=== PATIENT | female | born 1970 | race Caucasian/White ===

== ENCOUNTER → 2017-10-20 12:59 | Outpatient (CLI) | payer OTHER, BC, SELFPAY ==
[2017-10-20 13:44] LABS: Absolute Lymphocyte Count 2.08 X10^3/ul (0.83-4.51); Absolute Neutrophil Count 4.4 X10^3/uL (2.0-7.7); Basophil# 0.03 X10^3/uL; Basophil% 0.4 % (0-1); Eosinophil# 0.07 X10^3/uL; Hematocrit 40.9 % (37-47); Hemoglobin 13.6 g/dl (12.0-15.0); Lymphocyte # 2.08 X10^3/ul (4.0); Lymphocyte % 29.4 % (19-41); Mean Corp Hgb Conc 33.3 g/gl (32-36); Mean Corpuscular Hgb 30.4 pg (27.0-32.0); Mean Corpuscular Volume 91.3 fL (81-99); Mean Platelet Vol. 9.6 fl (6.2-12.0); Monocyte# 0.43 X10^3/uL; Monocyte% 6.1 % (0-10); Neutrophil # 4.44 X10^3/uL (2.7-7.7); Neutrophil % 62.8 % (47-70); Platelet Count 258 K/mm3 (150-450); RBC Distribution Width CV 12.8 % (11.6-14.6); RBC Distribution Width SD 42.4 fl (35.1-43.9); Red Blood Count 4.48 M/mm3 (4.2-5.4); White Blood Count 7.1 K/mm3 (4.4-11.0)
[2017-10-20 13:45] LABS: POSITIVE COUNT NO; POSITIVE DIFFERENTIAL NO; POSITIVE MORPHOLOGY NO
[2017-10-25 14:06] LABS: Clam <0.10 kU/L (Class 0); Codfish <0.10 kU/L (Class 0); Corn <0.10 kU/L (Class 0); Egg, White <0.10 kU/L (Class 0); Milk (Cow) <0.10 kU/L (Class 0); Peanut <0.10 kU/L (Class 0); SCALLOP <0.10 kU/L (Class 0); Shrimp <0.10 kU/L (Class 0); Soybean <0.10 kU/L (Class 0); Walnut, (Food) <0.10 kU/L (Class 0); Wheat <0.10 kU/L (Class 0)
[2017-10-26 03:06] LABS: Endomysial Antibody IgA Negative (Negative); Immunoglobulin A 130 mg/dL (87-352); Immunoglobulin E 5 IU/mL (0-100); PROEL- A/G Ratio 1.3 (0.7-1.7); PROEL- Albumin 3.9 g/dL (2.9-4.4); PROEL- Alpha-1 Globulin 0.3 g/dL (0.0-0.4); PROEL- Alpha-2 Globulin 0.7 g/dL (0.4-1.0); PROEL- TOTAL PROTEIN 6.9 g/dL (6.0-8.5)
[2017-10-26 11:08] LABS: Deamidated Gliadin IgA 1 units (0-19); Deamidated Gliadin IgG 3 units (0-19); Hep C Antibodies <0.1 s/co ratio (0.0-0.9); t-Transglutaminase IgA <2 U/mL (0-3)
[2017-10-26 11:10] LABS: SESAME SEED <0.10 kU/L (Class 0)
== END ==
PROVIDERS: Visit Provider Otolaryngology Otolaryngology/Facial Plastic Surgery
DX: T78.40XA Allergy, unspecified, initial encounter (principal); T78.3XXA Angioneurotic edema, initial encounter
CPT/HCPCS: 36415; 82784; 82785; 83516; 83520; 84165; 85025; 86003; 86160; 86255; 86803

== ENCOUNTER 2018-05-25 20:02 | Observation (INO) | payer BC, SELFPAY ==
[2018-05-25 20:03] VITALS: BP 160/98; PULSE 64; RESP 18; TEMP 36.5; O2SAT 99; BMI 25.4
--- NOTE | 2018-05-25 20:11 | EKG12_ITS ---
Test Reason : CP Blood Pressure : / mmHG Vent. Rate : 061 BPM Atrial Rate : 061 BPM P-R Int : 132 ms QRS Dur : 088 ms QT Int : 432 ms P-R-T Axes : 021 058 044 degrees QTc Int : 434 ms Normal sinus rhythm Normal ECG Confirmed by JOSE VANESSA, VJ ([id number]), visual effects editor GUY CHRISTIE ([id number] on 05/28/2018 2:51:02 PM Referred By: MEMO/CELESTE Confirmed By:VJ GARCIA MD
--- NOTE | 2018-05-25 20:11 | RAD_ITS ---
STUDY: X-RAY CHEST REASON FOR EXAM: Female, 47 years old. Chest pain. TECHNIQUE: Single AP portable view of the chest. COMPARISON: None. FINDINGS: Telemetry wires overlie the chest. The lungs are clear and expanded. There is no demonstrated pleural abnormality. Normal size heart. Normal mediastinum and fabio. Normal visualized pulmonary arteries. Normal visualized aortic arch and descending thoracic aorta. The thoracic spine is obscured by the mediastinum. Normal visualized ribs, clavicles, and shoulders. There is no demonstrated abnormality of the visualized soft tissue structures of the upper abdomen. RAD/Chest 1 View (Portable) IMPRESSION: No acute cardiopulmonary disease. Electronically Signed: Junior Schrader DO at 20:42 EST Tel [phone], Service support ,
[2018-05-25 20:14] VITALS: BP 161/94; PULSE 66; RESP 17; O2SAT 99
[2018-05-25] MEDS: Aspirin 81 MG TAB.CHEW 324 MG PO (20:19)
--- NOTE | 2018-05-25 20:31 | ED.VISSUMM ---
- ER Visit Summary Date of Service: 05/25/18 Chief Complaint: Left posterior shoulder and left chest wall pain History of Present Illness: The patient is a 47 F past medical history. Patient has no cardiac disease. She is a negative stress test years ago. Denies any prior cardiac cath. States for approximately a week she has had intermittent left posterior shoulder and left chest wall pain. Not associated with exertion. She states she has been more tired lately. She denies any nausea, vomiting or diarrhea. Mild dyspnea. She is concerned because her significant family history on both her mom and dad side of the family. Both her parents have had CAD and cardiac stents. She denies any history of DVT or PE. No leg pain or swelling. No hemoptysis. No pleuritic nature to the pain. She denies any recent travel, surgery or mobilization. She has had bilateral mastectomies and has bilateral implants. She denies any fever or chills. No trauma. No redness or discoloration to her chest wall. Physical Examination: Well-appearing middle-age female. Vital signs are stable. Afebrile. Pulse ox 99% on room air no hypoxia. H EENT exam unremarkable. Neck nontender. Lungs clear to auscultation bilaterally. Heart regular rate and rhythm no murmur. Chest wall does have reproducible tenderness on the left upper chest wall. There is no ecchymosis or bruising. No redness. No warmth. No axillary lymphadenopathy. She also has associated muscular skeletal chest pain on the left posterior lateral shoulder. She has normal range of motion of the shoulder. There is no redness or warmth or swelling. She has normal range of motion of the shoulder. She has no swelling in the left arm. She is a strong radial pulse. And normal linotyper strength in the left hand. Abdomen is soft and nontender. Normal bowel sounds no peritoneal signs. She is moving all 4 extremities. Calves are nontender without edema or cords. Neurologically she is awake alert with no focal motor deficits. Test Results: Patient will undergo cardiac workup. Chest x-ray normal cardiac silhouette mediastinum 1 view read both by myself and the radiologist. EKG sinus rhythm rate is 61 unchanged from EKG from several years ago. CBC normal. Chemistries normal. Troponin normal. Emergency Department Course and Treatment: P.o. aspirin. Treatment Plan: Repeat exam unchanged. Patient does have some reproducible shoulder and chest pain. However she states it does not exact same pain she came in for. This may or may not be musculoskeletal pain that she is experiencing but she has a significant family history of cardiac disease given the atypical nature of her presentation feel she warrants admission and cardiac stress testing. I spoke to the hospitalist and he will be down to evaluate and admit the patient. Disposition: Observation admission Impression: Acute chest pain of uncertain etiology Acute reproducible chest wall and left shoulder pain This note was generated with [facility] dictation software. It may contain incorrect words, spelling, and punctuation that were not noted in review of the chart prior to signing ED Disposition - Plan for ED Patient: Chief Complaint: Chest Pain Referrals: [facility] Doctor,Out of [Primary Care Provider] -
[2018-05-25 20:48] LABS: Absolute Lymphocyte Count 3.13 X10^3/ul (0.83-4.51); Absolute Neutrophil Count 4.4 X10^3/uL (2.0-7.7); Basophil# 0.03 X10^3/uL; Basophil% 0.4 % (0-1); Eosinophils% 2.3 % (0-5); Hematocrit 42.1 % (37-47); Hemoglobin 13.9 g/dl (12.0-15.0); Lymphocyte # 3.13 X10^3/ul (4.0); Lymphocyte % 36.7 % (19-41); Mean Corpuscular Hgb 30.2 pg (27.0-32.0); Mean Corpuscular Volume 91.5 fL (81-99); Mean Platelet Vol. 10.1 fl (6.2-12.0); Monocyte# 0.79 X10^3/uL; Monocyte% 9.3 % (0-10); Neutrophil # 4.35 X10^3/uL (2.7-7.7); Neutrophil % 51.1 % (47-70); POSITIVE COUNT NO; POSITIVE DIFFERENTIAL NO; POSITIVE MORPHOLOGY NO; Platelet Count 270 K/mm3 (150-450); RBC Distribution Width CV 12.7 % (11.6-14.6); RBC Distribution Width SD 42.2 fl (35.1-43.9); White Blood Count 8.5 K/mm3 (4.4-11.0)
[2018-05-25 20:56] VITALS: BP 146/93; PULSE 59; RESP 16; O2SAT 98; O2SAT 99
[2018-05-25 21:04] LABS: Anion Gap 7 (5-15); BUN 13 mg/dL (7-18); BUN/Creat Ratio 15.8 RATIO (10-20); Calcium,Total 9.1 mg/dL (8.5-10.1); Chloride 106 mmol/L (98-107); Creatinine, Serum 0.82 mg/dL (0.55-1.02); EST Glomerular Filtration Rate 79 mL/min (>60); Est Glom Filt Rate - Afr Amer 96 mL/min (>60); Estimated Creatinine Clearance 73.24 ml/min; Glucose 102 mg/dL (74-106); Potassium 3.5 mmol/L (3.5-5.1); Sodium Level 141 mmol/L (136-145)
[2018-05-25 21:28] VITALS: BP 127/95; PULSE 55; RESP 13; O2SAT 100
--- NOTE | 2018-05-25 22:53 | PCM.HP.STD ---
Problem List (1) Chest pain Status: Acute History of Present Illness Date of Admission: 05/25/18 Chief Complaint: chest pain The patient is a 47 year old F with a significant history of bilateral mastectomy because of precancerous lesion in her breasts and a strong family history of breast cancer; who presented with episodic progressively worsening sharp left-sided chest pain x 1 week. She rates her pain as 8 out of 10. She denies any aggravating or ameliorating factors. Her pain radiates to her left's shoulder blade and to her left arm. She has numbness in the fingers of her left hand. She reports nausea, feeling hot and diaphoresis. She is unsure whether the symptoms represents pre-menopausal symptoms. In the past, patient had unremarkable stress test. Stress test was done because of chest pain. She reported that her mother had a heart attack when her mother was either 48 or 49 years. Also her mother had a stroke in her early 60s. Her father had 3 heart attacks and he has coronary stents. His father's first heart attack was when he was in his 50s. Past Medical History Allergies codeine Allergy (Verified 05/25/18 20:13) Anaphylaxis nj Allergy (Verified 05/25/18 20:14) Swelling mold Allergy (Verified 05/25/18 20:14) Shortness of breath morphine Allergy (Verified 05/25/18 20:13) Anaphylaxis Opioids - Morphine Analogues Allergy (Verified 05/25/18 20:13) Anaphylaxis Home Medications: Ambulatory Orders Medication Instructions Recorded Calcium DAILY 05/25/18 Ferrous Sulfate [Iron] 325 mg PO DAILY 05/25/18 Magnesium DAILY 05/25/18 Vitamin B-12 DAILY 05/25/18 Vitamin D DAILY 05/25/18 Vitamin E DAILY 05/25/18 Surgical History: cholecystectomy, hysterectomy, - - Oophorectomy Psychiatric History: No pertinent psych hx Lives: Alone Smoking Status: Never smoker Alcohol: None - *Family History Maternal History Items: Heart Disease, Stroke Paternal History Items: Heart Disease Review of Systems Constitutional: Denies: Chills, Fever, Weight Change HEENT: Denies: Head Aches, Sinus Congestion, Sinus Drainage Cardiovascular: Reports: Chest Pain. Denies: Palpitations Respiratory: Denies: Cough, Shortness of breath at rest, Sputum production Gastrointestinal: Reports: Nausea, Vomiting. Denies: Abdominal Pain Genitourinary: Denies: Dysuria Musculoskeletal: Denies: Joint Pain, Joint Tenderness Skin: Denies: Rash, Wounds Neurological: Reports: Numbness - Left fingers. Denies: Focal weakness Psychiatric: Denies: Anxiety, Depression, Homicidal Ideations, Suicidal Ideations Hematologic/ Lymphatic: Denies: Easy Bruising, Easy Bleeding VTE Information - Inpt Only VTE Present on Admission: No VTE Mechan Device Prophylaxis: None VTE Pharm Prophylaxis ordered?: Yes Patient Problems: Active and Suspected Problems Chest pain (Acute) - Physical Exam General: Alert, Oriented x3, Cooperative HEENT: Atraumatic, PERRLA, EOMI, Normocephalic Neck: Supple, No JVD, Negative Carotid Bruits Lungs: Clear to auscultation, Normal air movement Cardiovascular: Regular rate, No murmurs Abdomen: Bowel Sounds Present, Soft, Non Tender Extremities: No edema, Capillary Refill Less than 3 Seconds Skin: No rashes, No breakdown Musculoskeletal: No Tenderness to Palpation of Joints or Extremities Neurological: Cranial nerves II-XII grossly intact Psych/Mental Status: Normal Affect, Appropriate Vital Signs Temp Pulse Resp BP Pulse Ox 97.7 F L 55 L 13 127/95 H 100 05/25/18 20:03 05/25/18 21:28 05/25/18 21:28 05/25/18 21:28 05/25/18 21:28 Oxygen Flow Rate (L/min) 2 Oxygen Delivery Method Nasal Cannula Weight: 67.3 kg Body Mass Index (BMI) 25.4 Laboratory Tests Past 24 Hrs 05/25/18 05/25/18 20:35 20:35 WBC 8.5 RBC 4.60 Hgb 13.9 Hct 42.1 MCV 91.5 MCH 30.2 MCHC 33.0 RDW 12.7 RDW Differential 42.2 Plt Count 270 MPV 10.1 Immature Gran % (Auto) 0.200 Neut % (Auto) 51.1 Lymph % (Auto) 36.7 [place] % (Auto) 9.3 Eos % (Auto) 2.3 Baso % (Auto) 0.4 Absolute Neuts (auto) 4.4 Absolute Lymphs (auto) 3.13 Total Counted Not Reportable Sodium 141 Potassium 3.5 Chloride 106 Carbon Dioxide 28.0 Anion Gap 7 BUN 13 Creatinine 0.82 Estim Creat Clear Calc 73.24 Est GFR (MDRD) Af Amer 96 Est GFR (MDRD) Non-Af 79 BUN/Creatinine Ratio 15.8 Glucose 102 Calcium 9.1 Troponin I < 0.015 Assessment/Plan All Active Problems Chest pain (Acute) The patient is a 47 year old F with a strong family history of heart disease who presents with one-week history of progressively worsening left-sided chest pain that radiates to her left shoulder blades; and unto her left arm; and with numbness of the fingers of her left arm Chest Pain Admit to a monitored bed on PCU CXR independently reviewed confirms no acute cardiopulmonary process.. EKG independently reviewed confirms normal sinus rhythm Patient received aspirin 324 mg at emergency department. ASA 81 mg p.o. daily SL NTG 0.4 mg prn as needed for chest pain Patient reports multiple allergies; and even with anaphylactic reactions. Statins not initiated. Serial cardiac enzymes Stat EKG as needed for chest pain Treadmill Stress test in the AM if the cardiac enzymes are negative DVT prophylaxis Subcutaneous Lovenox ordered. Code Visit OBSV E&M: 38151 Initial observation care L3
[2018-05-25 23:08] VITALS: BP 113/92; PULSE 72; PULSE 83; RESP 16; RESP 19; O2SAT 98; O2SAT 99
[2018-05-26] VITALS (10 sets, daily range): BP systolic 119–144; BP diastolic 78–88; PULSE 62–78; RESP 17–18; TEMP 36.5–36.6; O2SAT 96–98; BMI 24.4
--- NOTE | 2018-05-26 00:04 | EKG12_ITS ---
Test Reason : Blood Pressure : / mmHG Vent. Rate : 067 BPM Atrial Rate : 067 BPM P-R Int : 138 ms QRS Dur : 086 ms QT Int : 404 ms P-R-T Axes : 038 055 056 degrees QTc Int : 426 ms Normal sinus rhythm Nonspecific T wave abnormality Abnormal ECG When compared with ECG of 25-MAY-2018 20:15, MANUAL COMPARISON REQUIRED, DATA IS UNCONFIRMED Confirmed by JOSE VANESSA, VJ ([id number]), brands editor GUY CHRISTIE ([id number]) on 05/31/2018 2:05:39 PM Referred By: Confirmed By:VJ GARCIA MD
[2018-05-26 04:02] LABS: Absolute Lymphocyte Count 2.85 X10^3/ul (0.83-4.51); Absolute Neutrophil Count 3.6 X10^3/uL (2.0-7.7); Basophil# 0.03 X10^3/uL; Basophil% 0.4 % (0-1); Eosinophil# 0.17 X10^3/uL; Eosinophils% 2.3 % (0-5); Hematocrit 40.2 % (37-47); Hemoglobin 13.2 g/dl (12.0-15.0); Lymphocyte # 2.85 X10^3/ul (4.0); Lymphocyte % 39.1 % (19-41); Mean Corp Hgb Conc 32.8 g/gl (32-36); Mean Corpuscular Hgb 29.9 pg (27.0-32.0); Mean Corpuscular Volume 91.2 fL (81-99); Mean Platelet Vol. 10.2 fl (6.2-12.0); Monocyte# 0.63 X10^3/uL; Monocyte% 8.6 % (0-10); Neutrophil # 3.58 X10^3/uL (2.7-7.7); Neutrophil % 49.2 % (47-70); Platelet Count 252 K/mm3 (150-450); RBC Distribution Width CV 12.5 % (11.6-14.6); RBC Distribution Width SD 41.2 fl (35.1-43.9); Red Blood Count 4.41 M/mm3 (4.2-5.4); White Blood Count 7.3 K/mm3 (4.4-11.0)
[2018-05-26 04:05] LABS: POSITIVE COUNT NO; POSITIVE DIFFERENTIAL NO; POSITIVE MORPHOLOGY NO
[2018-05-26 04:07] LABS: Partial Thromboplast Time 26.8 Seconds (24.1-36.2); Prothrombin Time (Protime)PT. 12.8 SECONDS (11.7-14.9)
[2018-05-26] MEDS: Aspirin E.C. 81 MG Tablet PO (06:11)
[2018-05-26 06:44] LABS: Anion Gap 8 (5-15); BUN 12 mg/dL (7-18); BUN/Creat Ratio 15.7 RATIO (10-20); Calcium,Total 8.9 mg/dL (8.5-10.1); Chloride 108 mmol/L (98-107); Cholesterol 187 mg/dL (200); Creatinine, Serum 0.76 mg/dL (0.55-1.02); EST Glomerular Filtration Rate 86 mL/min (>60); Est Glom Filt Rate - Afr Amer 104 mL/min (>60); Estimated Creatinine Clearance 79.02 ml/min; Glucose 107 mg/dL (74-106); High Density Lipoprotein 75 mg/dL; Potassium 3.6 mmol/L (3.5-5.1); Sodium Level 141 mmol/L (136-145); Triglycerides 68 mg/dL; Very Low Density Lipoprotein 14 mg/dL (5-40)
--- NOTE | 2018-05-26 10:23 | STRESSREP ---
Stress Test Report Date: 05/26/2018 Procedure: Exercise tolerance test/imaging study Indications: Chest pain Consent: Per the patient Procedure: The patient exercised on a Kit protocol for 10 minutes completing Stage III and 1 minute of Stage IV achieving a peak heart rate of 169 bpm (97 % predicted maximal heart rate) with a peak blood pressure 130/80 mmHg and a peak MET capacity of 11 METs. The baseline ECG demonstrated normal sinus rhythm. The peak exercise ECG demonstrated no obvious ECG changes. There were no cardiac dysrhythmias pretest, during exercise, or recovery. The functional capacity was considered good. There was no complaint of chest discomfort during exercise or recovery. The examination was discontinued secondary to shoulder discomfort. Impression: 1. Technically adequate (percent predicted maximal heart rate greater than 85%) exercise tolerance test 2. Peak exercise ECG with no obvious ECG changes 3. There were no cardiac dysrhythmias pretest, during exercise, or recovery 4. Nuclear images pending Myocardial perfusion imaging study: Technique: The patient was injected with 11.2 mCi of technetium 99m Cardiolite and subsequently rest SPECT Cardiolite nuclear imaging was obtained in the horizontal long, vertical long, and short axis views. The patient exercised on a Kit protocol for 10 minutes completing Stage III and 1 minute of Stage IV achieving a peak heart rate of 169 bpm (97 % predicted maximal heart rate) with a peak blood pressure 130/80 mmHg and a peak MET capacity of 11 METs. The patient was injected with 32.7 mCi of technetium 99m Cardiolite and subsequently stress SPECT Cardiolite nuclear imaging was obtained in the horizontal long, vertical long, and short axis views. A gated Cardiolite study at peak stress was obtained. Interpretation: Rest and stress SPECT Cardiolite nuclear imaging status post realignment and normalization demonstrates the appearance of relative uniform tracer uptake and myocardial perfusion appearing within normal limits. There is end systolic thickening and brightening. The gated Cardiolite study demonstrates myocardial thickening and inward wall motion. The reported LVEF is 68%. Impression: 1. Rest and stress SPECT Cardiolite nuclear imaging demonstrate relative uniform tracer uptake and myocardial perfusion appearing within normal limits. 2. The gated Cardiolite study reports an LVEF of 68 %. This note was generated with [employer] software. It may contain incorrect words, spelling, and punctuation that were not noted in checking the note before signing.
--- NOTE | 2018-05-26 10:29 | STRESSREP_ITS ---
Stress Test Report Date: 05/26/2018 Procedure: Exercise tolerance test/imaging study Indications: Chest pain Consent: Per the patient Procedure: The patient exercised on a Kit protocol for 10 minutes completing Stage III and 1 minute of Stage IV achieving a peak heart rate of 169 bpm (97 % predicted maximal heart rate) with a peak blood pressure 130/80 mmHg and a peak MET capacity of 11 METs. The baseline ECG demonstrated normal sinus rhythm. The peak exercise ECG demonstrated no obvious ECG changes. There were no cardiac dysrhythmias pretest, during exercise, or recovery. The functional capacity was considered good. There was no complaint of chest discomfort during exercise or recovery. The examination was discontinued secondary to shoulder discomfort. Impression: 1. Technically adequate (percent predicted maximal heart rate greater than 85%) exercise tolerance test 2. Peak exercise ECG with no obvious ECG changes 3. There were no cardiac dysrhythmias pretest, during exercise, or recovery 4. Nuclear images pending Myocardial perfusion imaging study: Technique: The patient was injected with 11.2 mCi of technetium 99m Cardiolite and subsequently rest SPECT Cardiolite nuclear imaging was obtained in the horizontal long, vertical long, and short axis views. The patient exercised on a Kit protocol for 10 minutes completing Stage III and 1 minute of Stage IV achieving a peak heart rate of 169 bpm (97 % predicted maximal heart rate) with a peak blood pressure 130/80 mmHg and a peak MET capacity of 11 METs. The marcella ent was injected with 32.7 mCi of technetium 99m Cardiolite and subsequently stress SPECT Cardiolite nuclear imaging was obtained in the horizontal long, vertical long, and short axis views. A gated Cardiolite study at peak stress was obtained. Interpretation: Rest and stress SPECT Cardiolite nuclear imaging status post realignment and normalization demonstrates the appearance of relative uniform tracer uptake and myocardial perfusion appearing within normal limits. There is end systolic thickening and brightening. The gated Cardiolite study demonstrates myocardial thickening and inward wall motion. The reported LVEF is 68%. Impression: 1. Rest and stress SPECT Cardiolite nuclear imaging demonstrate relative uniform tracer uptake and myocardial perfusion appearing within normal limits. 2. The gated Cardiolite study reports an LVEF of 68 %. This note was generated with [employer] software. It may contain incorrect words, spelling, and punctuation that were not noted in checking the note before signing.
--- NOTE | 2018-05-26 11:54 | PCM.DC ---
- Discharge Diagnoses Current Active Problems: Current Active and Chronic Problems Chest pain (Acute) You will use the following diet at home:: No restrictions Your food should be the consistency of: Regular Your liquids should be the consistency of: Regular/Thin Discharge Activity: Return to Normal Activity Weight Bearing Status: Full weight bearing Allergies/Adverse Reactions: Allergies codeine Allergy (Verified 05/25/18 20:13) Anaphylaxis nj Allergy (Verified 05/25/18 20:14) Swelling mold Allergy (Verified 05/25/18 20:14) Shortness of breath morphine Allergy (Verified 05/25/18 20:13) Anaphylaxis Opioids - Morphine Analogues Allergy (Verified 05/25/18 20:13) Anaphylaxis Medications to take at Discharge Calcium DAILY 05/25/18 Ferrous Sulfate [Iron] 325 mg PO DAILY 05/25/18 Magnesium DAILY 05/25/18 Vitamin B-12 DAILY 05/25/18 Vitamin D DAILY 05/25/18 Vitamin E DAILY 05/25/18 Primary Care Physician: [facility] Doctor,Out of [Primary Care Provider] - Please follow up with your Primary Care Physician in: next visit Test Results: Test results from this visit will be discussed in further detail at your follow-up appointment, if applicable.
--- NOTE | 2018-05-28 09:26 | PCM.DC.SUM ---
Discharge Date and Diagnosis Date of Admission: 05/25/18 Date of Discharge: 05/26/18 - Primary Discharge Diagnosis #1 musculoskeletal chest pain Hospital Course and Treatment Operations: None Procedures: Nuclear stress test Summary of Care Provided: The patient is a 47 year old F seen in the emergency room with a chief complaint of pain radiating from her left shoulder blade into her mid precordial chest area, patient also complained of some numbness of the left side of her face and some numbness down her left arm. Workup in the emergency room included an EKG which showed no acute ischemic changes, her chest x-ray was unremarkable, troponin was unremarkable. Patient was placed and observation status on PCU, cardiac enzymes were cycled and remained normal, patient underwent a nuclear stress test on 05/26/18 which was negative for reversible ischemia. Physical exam: On examination she appeared in good health and spirits. Vital signs as documented. Skin warm and dry and without overt rashes. Neck without JVD. Lungs clear. Heart exam notable for regular rhythm, normal sounds and absence of murmurs, rubs or gallops. Abdomen unremarkable and without evidence of organomegaly, masses, or abdominal aortic enlargement. Extremities nonedematous. Neuro: Cranial nerves II through XII are grossly intact, no focal motor deficits were noted. Psych: Patient is alert and oriented x3, she does not appear anxious or depressed. On 05/26/18, patient was seen and examined felt to be in stable condition for discharge home - Physical Exam Vital Signs Temp Pulse Resp BP Pulse Ox 98 F 77 17 121/78 H 97 05/26/18 08:53 05/26/18 11:04 05/26/18 08:53 05/26/18 08:53 05/26/18 11:00 Oxygen Flow Rate (L/min) 2 Oxygen Delivery Method Room Air Weight: 64.5 kg Body Mass Index (BMI) 24.4 Intake and Output for Last 24 Hours 05/26/18 05/27/18 05/28/18 23:59 23:59 23:59 Intake Total 480 / 480 Balance 480 / 480 Discharge Activity: Return to Normal Activity Weight Bearing Status: Full weight bearing Home Medications: Medications to take at Discharge Calcium DAILY 05/25/18 Ferrous Sulfate [Iron] 325 mg PO DAILY 05/25/18 Magnesium DAILY 05/25/18 Vitamin B-12 DAILY 05/25/18 Vitamin D DAILY 05/25/18 Vitamin E DAILY 05/25/18 Primary Care Physician: [facility] Doctor,Out of [Primary Care Provider] - Please follow up with your Primary Care Physician in: next visit Disposition: Home Minutes spent on discharge:: 30 Patient Condition:: Stable Medical Necessity - Tobacco Use Smoking Status: Never smoker Meaningful Use Info Meaningful Use Diagnoses (Choose all that apply): None applicable Code Visit OBSV E&M: 82130 Observation care discharge
== END 2018-05-26 11:55 | disposition home or self-care (01) ==
LOC: ED 20:39 → PCU 23:06
PROVIDERS: Admitting Provider Hospitalist; Emergency Provider Emergency Medicine; Visit Provider Internal Medicine
DX: R07.89 Other chest pain (principal); Z82.49 Family history of ischemic heart disease and other diseases of the circulatory system; R06.09 Other forms of dyspnea
CPT/HCPCS: 36415; 71045; 78452; 80048; 80061; 84484; 85025; 85610; 85730; 93005; 93017; 99218; 99285; A9500; A4216; G0378

== ENCOUNTER 2020-02-23 19:21 | Emergency (ER) | payer BC, SELFPAY ==
[2020-02-23 19:23] VITALS: BP 154/97; PULSE 89; RESP 16; TEMP 36.6; O2SAT 98; BMI 27.4
--- NOTE | 2020-02-23 19:53 | EKG12_ITS ---
Test Reason : CP Blood Pressure : / mmHG Vent. Rate : 069 BPM Atrial Rate : 069 BPM P-R Int : 136 ms QRS Dur : 084 ms QT Int : 378 ms P-R-T Axes : 039 056 035 degrees QTc Int : 405 ms Normal sinus rhythm Nonspecific ST and T wave abnormality Abnormal ECG Confirmed by HILARIO REYNA ([id number]), assignment desk editor LUCAS YOUNG ([id number]) on 02/27/2020 2:07:00 PM Referred By: KATIE Confirmed By:HILARIO REYNA
--- NOTE | 2020-02-23 19:53 | CT_ITS ---
STUDY: CTA CHEST REASON FOR EXAM: Female, 49 years old. CHEST/BACK HEAVINESS X MONTHS. COUGH RADIATION DOSAGE (If Supplied By Facility): CTDIvol = ( 10.775 ) mGy, DLP = ( 476.22 ) mGycm TECHNIQUE: The examination was performed with the intravenous administration of IV 100mL Isovue-370. Post-processing of the angiographic images was performed, with multiplanar reformation and 3D reconstruction. Individualized dose optimization techniques were used for this CT. COMPARISON: None. FINDINGS: Bilateral breast implants seen. There is limited enhancement of the main pulmonary artery and right and left pulmonary arteries. There is limited enhancement of the bilateral peripheral pulmonary arteries. Specifically, most of the contrast is seen in the right brachiocephalic vein and SVC, and the aorta is enhanced as much as the pulmonary arteries. This indicates a much too broad contrast bolus with improper timing. Pulmonary emboli cannot be excluded beyond the pulmonary trunk and main pulmonary arteries. Normal thoracic aorta and visualized great vessels. There is no demonstrated aortic dissection. Normal heart and pericardium. Normal mediastinum. Normal hilar regions. Normal visualized trachea and bronchi. The lungs are well expanded. Normal pulmonary parenchyma. Stable calcified 2.1 cm granuloma in the posterior right lower lobe. Normal pleura. There are no pleural effusions. Normal chest wall structures. Normal osseous structures. Normal visualized upper abdomen. CT/CTA Chest W/WO Contrast IMPRESSION: Technically suboptimal exam. There is inadequate enhancement of the pulmonary arteries because of improper timing. Therefore pulmonary emboli cannot be confirmed or excluded beyond the main pulmonary arteries. No evidence for acute cardiopulmonary disease. Electronically Signed: Olaf Mckenna MD at 21:33 EDT , Service support ,
[2020-02-23 20:23] LABS: Absolute Lymphocyte Count 2.53 X10^3/uL (0.83-4.51); Absolute Neutrophil Count 4.1 X10^3/uL (2.0-7.7); Basophil# 0.04 X10^3/uL; Basophil% 0.5 % (0-1); Eosinophil# 0.21 X10^3/uL; Eosinophils% 2.8 % (0-5); Hematocrit 39.8 % (37-47); Hemoglobin 13.1 g/dL (12.0-15.0); Lymphocyte # 2.53 X10^3/ul (4.0); Lymphocyte % 33.9 % (19-41); Mean Corp Hgb Conc 32.9 g/dL (32-36); Mean Corpuscular Hgb 30.1 pg (27.0-32.0); Mean Corpuscular Volume 91.5 fL (81-99); Mean Platelet Vol. 9.8 fl (6.2-12.0); Monocyte# 0.53 X10^3/uL; Monocyte% 7.1 % (0-10); NRBC Flagged by Analyzer 0 % (0-5); Neutrophil # 4.12 X10^3/uL (2.7-7.7); Neutrophil % 55.3 % (47-70); Platelet Count 254 K/mm3 (150-450); RBC Distribution Width CV 12.7 % (11.6-14.6); RBC Distribution Width SD 42.4 fl (35.1-43.9); Red Blood Count 4.35 M/mm3 (4.2-5.4); White Blood Count 7.5 K/mm3 (4.4-11.0)
[2020-02-23 20:27] VITALS: BP 122/76; PULSE 78; RESP 18; O2SAT 97
[2020-02-23 20:37] LABS: BNP,B-Type NATRIURETIC PEPTIDE 14.1 pg/mL (0-100)
[2020-02-23 20:42] LABS: Anion Gap 3 (5-15); BUN 12 mg/dL (7-18); BUN/Creat Ratio 12.9 RATIO (10-20); Calcium,Total 8.8 mg/dL (8.5-10.1); Chloride 107 mmol/L (98-107); Creatinine, Serum 0.93 mg/dL (0.55-1.02); EST Glomerular Filtration Rate 68 mL/min (>60); Est Glom Filt Rate - Afr Amer 82 mL/min (>60); Estimated Creatinine Clearance 63.19 ml/min; Glucose 106 mg/dL (74-106); Potassium 4.4 mmol/L (3.5-5.1); Sodium Level 139 mmol/L (136-145)
[2020-02-23 21:38] VITALS: PULSE 77; RESP 20; O2SAT 96
--- NOTE | 2020-02-23 21:49 | ED.VISSUMM ---
- ER Visit Summary Date of Service: 02/23/20 Chief Complaint: Chest pain, shortness of breath History of Present Illness: The patient is a 49 F who presents with chest pain or shortness of breath. She has had this for 4 months. She describes as a pressure in the middle part of her chest. It does not radiate. Is worse with exertion. Her shortness of breath is worse with lying down. She states she has felt like she has acid reflux. She does admit to some pain in her lower back as well. She has had a mild cough. She states that she was tested for the coronavirus and it was negative. She has been on multiple antibiotics for a URI but nothing makes her symptoms better. Physical Examination: Vital signs reviewed. HEENT exam unremarkable. Heart is regular rate and rhythm without murmurs. Lungs are clear to auscultation. Abdomen is soft and nontender. Extremities reveal no edema. Peripheral pulses are equal. Skin exam normal. Neurologic exam normal. Test Results: EKG is normal sinus rhythm with no ischemic changes. Laboratory studies are normal. CTA of the chest shows no evidence of PE Emergency Department Course and Treatment: I am unclear the etiology of the patient's symptoms. She states her symptoms are worse with lying down. I see no evidence of CHF or fluid overload. I will give her an inhaler at home to see if this will help with her symptoms. It does not sound cardiac. She had a negative cardiac work-up here. She will need to follow-up with her PCP for further testing. Treatment Plan: [] Disposition: Discharge Impression: Dyspnea, chest pain This note was generated with [employer] dictation software. It may contain incorrect words, spelling, and punctuation that were not noted in review of the chart prior to signing ED Disposition - Plan for ED Patient: Disposition: Home or Assisted Living Instructions: ED Chest Pain NonCardiac Prescriptions: Albuterol Inhaler [Ventolin Hfa] 1 - 2 puff INHALATION Q4H PRN PRN #1 inhaler PRN Reason: Wheezing Prescription Printed Referrals: JASWINDER CONNER [Other]
[2020-02-23 22:03] VITALS: BP 122/76; PULSE 81; RESP 15; O2SAT 99
== END 2020-02-23 22:04 | disposition home or self-care (01) ==
PROVIDERS: Emergency Provider Emergency Medicine
DX: R06.00 Dyspnea, unspecified (principal); R07.9 Chest pain, unspecified
CPT/HCPCS: 71275; 80048; 83880; 84484; 85025; 93005; 99283; Q9967; A4216

== ENCOUNTER 2020-06-11 13:41 | Emergency (ER) | payer BC, SELFPAY ==
[2020-06-11 13:42] VITALS: BP 142/71; PULSE 89; RESP 15; TEMP 36.3; O2SAT 99; BMI 27.1
--- NOTE | 2020-06-11 14:35 | EKG12_ITS ---
Test Reason : CP Blood Pressure : / mmHG Vent. Rate : 069 BPM Atrial Rate : 069 BPM P-R Int : 138 ms QRS Dur : 086 ms QT Int : 388 ms P-R-T Axes : 032 051 038 degrees QTc Int : 415 ms Normal sinus rhythm Nonspecific ST abnormality Abnormal ECG Confirmed by JOSE VANESSA, VJ ([id number]), tape editor JOSELIN BACK ([id number]) on 06/13/2020 9:36:02 AM Referred By: JAYLEN Confirmed By:VJ GARCIA MD
--- NOTE | 2020-06-11 14:35 | ED.VIS.GEN ---
History of Present Illness Chief Complaint: Chest Pain Informant: Patient Narrative: 49-year-old female presents for the evaluation of chest pain. Patient states that it is left-sided wrapping towards the back by her shoulder blade. Is worse with deep inspiration. She has had some discomfort intermittently for months. No obvious cause was found on a prior ED evaluation. This pain she states is little bit different. It is more intense. It has been present for past couple days. She denies any DVT PE risk factors. She does note that she has breast implants from about 7 years ago. She wonders if there could be something regarding that. Her surgeon is in [place]. Past Medical History - Allergies and Home Meds Allergies/Adverse Reactions: Allergies codeine Allergy (Verified 06/11/20 13:41) Anaphylaxis nj Allergy (Verified 06/11/20 13:41) Swelling mold Allergy (Verified 06/11/20 13:41) Shortness of breath morphine Allergy (Verified 06/11/20 13:41) Anaphylaxis Opioids - Morphine Analogues Allergy (Verified 06/11/20 13:41) Anaphylaxis Primary Care Physician: JASWINDER CONNER [Other] Surgical History: cholecystectomy, hysterectomy, - - Oophorectomy Smoking Status: Never smoker Alcohol: Rare Drugs: None - Family History Maternal Family History: Reports: Heart Disease, Stroke Paternal Family History: Reports: Heart Disease Review of Systems General: Denies: Chills, Fever, Sweats Eyes: Denies: Visual changes - bilaterally, Diplopia ENT: Denies: Rhinorrhea, Sore throat Cardiovascular: Reports: Chest pain. Denies: Palpitations Respiratory: Denies: Dyspnea, Cough, Dyspnea on exertion Gastrointestinal: Denies: Abdominal pain, Nausea, Vomiting, Diarrhea, Melena, Hematochezia Genitourinary: Denies: Dysuria, Hematuria, Frequency Musculoskeletal: Denies: Back pain, Extremity Pain Skin: Denies: Rash, Wounds Neurological: Denies: Headache, Weakness, Numbness Physical Exam Vital Signs/Narrative: Vital Signs Temp Pulse Resp BP Pulse Ox 06/11/20 13:42 97.4 F L 89 15 142/71 H 99 Inital Vital Signs reviewed: Yes General: Well nourished, Well developed, No Acute Distress Head: Normocephalic, Atraumatic Eyes: Perrl, EOMI ENT: Moist mucous membranes, No rhinorrhea Neck: Supple, Nontender Cardiovascular: Regular rate, Regular rhythm, No murmurs Respiratory: No distress, CTA bilaterally, Chest tenderness - There is rib tenderness particularly posteriorly of the mid ribs in the rhomboid area. Abdomen: Soft, Nontender, Nondistended, Normal bowel sounds Back: Nontender, Normal Inspection Extremities: Nontender, No edema Skin: Normal color, No rash Neurological: Alert, Oriented x3, Cranial nerves II-XII grossly intact, Normal Strength, Normal Sensation Psychological: Normal affect, Normal Mood Diagnostic/Tx/Re-eval Clinical Impression(s) from Imaging Studies Chest X-Ray 06/11/20 14:51 IMPRESSION: Stable, nonacute portable x-ray examination of the chest. Electronically Signed: Peterson Mares MD (Brooks) at 15:13 EST , Service support , Laboratory Last Values WBC 7.1 K/mm3 (4.4-11.0) 06/11/20 14:40 RBC 4.65 M/mm3 (4.2-5.4) 06/11/20 14:40 Hgb 13.9 g/dL (12.0-15.0) 06/11/20 14:40 Hct 42.3 % (37-47) 06/11/20 14:40 MCV 91.0 fL (81-99) 06/11/20 14:40 MCH 29.9 pg (27.0-32.0) 06/11/20 14:40 MCHC 32.9 g/dL (32-36) 06/11/20 14:40 RDW Std Deviation 41.8 fl (35.1-43.9) 06/11/20 14:40 RDW Coeff of Kahlil 12.6 % (11.6-14.6) 06/11/20 14:40 Plt Count 287 K/mm3 (150-450) 06/11/20 14:40 MPV 9.7 fl (6.2-12.0) 06/11/20 14:40 Immature Gran % (Auto) 0.400 % (0.0-0.9) 06/11/20 14:40 Neut % (Auto) 60.2 % (47-70) 06/11/20 14:40 Lymph % (Auto) 31.4 % (19-41) 06/11/20 14:40 [place] % (Auto) 5.6 % (0-10) 06/11/20 14:40 Eos % (Auto) 1.8 % (0-5) 06/11/20 14:40 Baso % (Auto) 0.6 % (0-1) 06/11/20 14:40 Absolute Neuts (auto) 4.3 X10^3/uL (2.0-7.7) 06/11/20 14:40 Absolute Lymphs (auto) 2.24 X10^3/uL (0.83-4.51) 06/11/20 14:40 Nucleated RBC % 0 % (0-5) 06/11/20 14:40 D-Dimer Quant (PE/DVT) 0.32 FEU/ug/m (0.27-0.49) 06/11/20 14:40 Sodium 142 mmol/L (136-145) 06/11/20 14:40 Potassium 3.6 mmol/L (3.5-5.1) 06/11/20 14:40 Chloride 109 mmol/L (98-107) H 06/11/20 14:40 Carbon Dioxide 27.0 mmol/L (21.0-32.0) 06/11/20 14:40 Anion Gap 6 (5-15) 06/11/20 14:40 BUN 11 mg/dL (7-18) 06/11/20 14:40 Creatinine 0.89 mg/dL (0.55-1.02) 06/11/20 14:40 Estim Creat Clear Calc 66.03 ml/min 06/11/20 14:40 Est GFR (MDRD) Af Amer 86 mL/min (>60) 06/11/20 14:40 Est GFR (MDRD) Non-Af 71 mL/min (>60) 06/11/20 14:40 BUN/Creatinine Ratio 12.3 RATIO (10-20) 06/11/20 14:40 Glucose 129 mg/dL (74-106) H 06/11/20 14:40 Calcium 9.5 mg/dL (8.5-10.1) 06/11/20 14:40 Troponin I < 0.015 ng/mL (<0.045) 06/11/20 14:40 - EKG Initial EKG Interpretation: Sinus Rhythm - EKG demonstrates a normal sinus rhythm at a rate of 69. No ectopy or concerning features of ACS - Medical Decision Making Work-up including troponin D-dimer negative. Her description of the events of my palpate the musculature particular the rhomboids I think that this is most likely some somatic dysfunction of the rib cage. As far as her more long-term pain around her implant I suggested that she may want to visit with the surgeon to see if there could be any potential complications with the implant such as scar tissue. Patient is comfortable going home. I can write for some Flexeril Motrin and would recommend heat and stretching. ED Disposition - Plan for ED Patient: Disposition: Home or Assisted Living Diagnosis: Somatic dysfunction of rib cage region, Chest pain Instructions: ED Chest Pain, Noncardiac Prescriptions: cycloBENZAPRine HCl [Flexeril] 10 mg PO TID PRN #15 tab PRN Reason: Muscle Spasm Prescription Printed Referrals: JASWINDER CONNER [Other] - 1 Week if not improving
--- NOTE | 2020-06-11 14:51 | RAD_ITS ---
STUDY: X-RAY CHEST REASON FOR EXAM: Female, 49 years old. PT C/O CP FOR MONTHS. STATES IT HURTS UNDER HER BREAST IMPLANTS ON THE LEFT SIDE. STATES THE PAIN IS INTERMITTENT. ALSO STATES SHE GETS CP AFTER WEARING HER MASK ALL DAY TECHNIQUE: AP COMPARISON: 05/25/2018 FINDINGS: EKG leads project over the chest. The lungs are clear and expanded. There is no demonstrated pleural abnormality. Normal size heart. There are calcified right hilar lymph nodes. Normal visualized pulmonary arteries. Normal visualized aortic arch and descending thoracic aorta. Normal visualized thoracic spine. Normal visualized ribs, clavicles, and shoulders. There is no demonstrated abnormality of the visualized soft tissue structures of the upper abdomen. RAD/Chest 1 View (Portable) IMPRESSION: Stable, nonacute portable x-ray examination of the chest. Electronically Signed: Peterson Mares MD (Brooks) at 15:13 EST , Service support ,
[2020-06-11 14:55] LABS: Absolute Lymphocyte Count 2.24 X10^3/uL (0.83-4.51); Absolute Neutrophil Count 4.3 X10^3/uL (2.0-7.7); Basophil# 0.04 X10^3/uL; Basophil% 0.6 % (0-1); Eosinophil# 0.13 X10^3/uL; Eosinophils% 1.8 % (0-5); Hematocrit 42.3 % (37-47); Hemoglobin 13.9 g/dL (12.0-15.0); Lymphocyte # 2.24 X10^3/ul (4.0); Lymphocyte % 31.4 % (19-41); Mean Corp Hgb Conc 32.9 g/dL (32-36); Mean Corpuscular Hgb 29.9 pg (27.0-32.0); Mean Platelet Vol. 9.7 fl (6.2-12.0); Monocyte% 5.6 % (0-10); NRBC Flagged by Analyzer 0 % (0-5); Neutrophil % 60.2 % (47-70); Platelet Count 287 K/mm3 (150-450); RBC Distribution Width CV 12.6 % (11.6-14.6); RBC Distribution Width SD 41.8 fl (35.1-43.9); Red Blood Count 4.65 M/mm3 (4.2-5.4); White Blood Count 7.1 K/mm3 (4.4-11.0)
[2020-06-11] MEDS: Aspirin 81 MG TAB.CHEW 324 MG PO (14:56)
[2020-06-11 15:07] LABS: D-Dimer Quantitative (DVT/PE) 0.32 FEU/ug/m (0.27-0.49)
[2020-06-11 15:13] LABS: Anion Gap 6 (5-15); BUN 11 mg/dL (7-18); BUN/Creat Ratio 12.3 RATIO (10-20); Calcium,Total 9.5 mg/dL (8.5-10.1); Chloride 109 mmol/L (98-107); Creatinine, Serum 0.89 mg/dL (0.55-1.02); EST Glomerular Filtration Rate 71 mL/min (>60); Est Glom Filt Rate - Afr Amer 86 mL/min (>60); Estimated Creatinine Clearance 66.03 ml/min; Glucose 129 mg/dL (74-106); Potassium 3.6 mmol/L (3.5-5.1); Sodium Level 142 mmol/L (136-145)
[2020-06-11 15:50] VITALS: BP 127/93; PULSE 93; RESP 16; O2SAT 97
--- NOTE | 2020-06-11 15:50 | ED.RN ---
IV DC'ED, CATHETER INTACT, SMALL GAUZE DRESSING PLACED. DISCHARGE INSTRUCTIONS GIVEN TO AND REVIEWED WITH PATIENT, PATIENT DENIES QUESTIONS OR CONCERNS AND VOICES UNDERSTANDING OF DISCHARGE INSTRUCTIONS. PT AMBULATES OUT OF ROOM WITHOUT DIFFICULTY.
== END 2020-06-11 15:51 | disposition home or self-care (01) ==
PROVIDERS: Emergency Provider Emergency Medicine
DX: M99.08 Segmental and somatic dysfunction of rib cage (principal); R07.9 Chest pain, unspecified
CPT/HCPCS: 71045; 80048; 84484; 85025; 85379; 93005; 99284; A4216

== ENCOUNTER 2024-02-05 23:09 | Emergency (ER) | payer BC, SELFPAY ==
[2024-02-05 23:12] VITALS: BP 145/89; PULSE 89; RESP 18; TEMP 36.4; O2SAT 97; BMI 31.5
--- NOTE | 2024-02-05 23:21 | EKG12_ITS ---
Test Reason : DYSRHYTHMIA Blood Pressure : / mmHG Vent. Rate : 079 BPM Atrial Rate : 079 BPM P-R Int : 148 ms QRS Dur : 086 ms QT Int : 402 ms P-R-T Axes : 031 027 055 degrees QTc Int : 460 ms Normal sinus rhythm Normal ECG Confirmed by JOSE VANESSA, VJ ([id number]), writer editor SVITLANA LUGO ([id number]) on 02/12/2024 11:31:50 AM Referred By: Confirmed By:VJ GARCIA MD
--- NOTE | 2024-02-05 23:21 | CT_ITS ---
INDICATION: chest pain EXAMINATION: CT CHEST WITH CONTRAST - CTA Chest WO/W Contrast Injection TECHNIQUE: Helically acquired images were obtained of the chest following IV contrast timed in the pulmonary arterial phase with sagittal and coronal reconstructed images. Post-processing of the angiographic images was performed with multiplanar reformation and 3D reconstruction. Individualized dose optimization techniques were used for this CT. IV contrast dosage and agent: 100 mL of Isovue-370. COMPARISON: 02/23/2020 CT. FINDINGS: LUNGS, PLEURA AND LARGE AIRWAYS: No consolidation or edema. Right lower lobe calcified pulmonary nodule. No pleural effusion. No pneumothorax. THYROID: Unremarkable. HEART AND PERICARDIUM: No evidence of coronary artery calcification. No pericardial effusion. No evidence of right heart strain. Right ventricle to left ventricle ratio measures less than 1. MEDIASTINUM AND YARED: Mediastinal and right hilar calcified lymph nodes. Esophagus is unremarkable. No hiatal hernia. VESSELS: No pulmonary embolism. No thoracic aortic aneurysm. UPPER ABDOMEN: The visualized upper abdomen is unremarkable. BONES: No acute abnormality. CT/CTA Chest W/WO Contrast IMPRESSION: 1. No pulmonary embolism. 2. No evidence of acute cardiopulmonary disease. Electronically Signed: Alf Barrett DO at 1:22 EDT ,
[2024-02-05 23:22] VITALS: BMI 31.5
[2024-02-05] MEDS: 0.9% Normal Saline (1000mL) 1,000 ML 999 ML IV (23:27)
[2024-02-05 23:36] LABS: Absolute Lymphocyte Count 3.26 X10^3/uL (0.83-4.51); Absolute Neutrophil Count 4.5 X10^3/uL (2.0-7.7); Basophil# 0.05 X10^3/uL; Basophil% 0.6 % (0-1); Eosinophils% 2.3 % (0-5); Hematocrit 38.3 % (37-47); Hemoglobin 12.4 g/dL (12.0-15.0); Lymphocyte # 3.26 X10^3/ul (0.83-4.51); Lymphocyte % 36.8 % (19-41); Mean Corp Hgb Conc 32.4 g/dL (32-36); Mean Corpuscular Hgb 28.6 pg (27.0-32.0); Mean Corpuscular Volume 88.2 fL (81-99); Mean Platelet Vol. 9.7 fl (6.2-12.0); NRBC Flagged by Analyzer 0 % (0-5); Neutrophil # 4.49 X10^3/uL (2.7-7.7); Neutrophil % 50.6 % (47-70); Platelet Count 280 K/mm3 (150-450); RBC Distribution Width CV 13.5 % (11.6-14.6); RBC Distribution Width SD 43.5 fl (35.1-43.9); Red Blood Count 4.34 M/mm3 (4.2-5.4); White Blood Count 8.9 K/mm3 (4.4-11.0)
[2024-02-05 23:50] LABS: Prothrombin Time (Protime)PT. 12.7 SECONDS (11.7-14.9)
[2024-02-05 23:51] LABS: Partial Thromboplast Time 26.2 Seconds (24.1-36.2)
[2024-02-06] VITALS: BP 163/86; PULSE 77; RESP 15; O2SAT 99
[2024-02-06 00:07] LABS: AST(SGOT) 31 U/L (15-37); Alanine Aminotransfer ALT/SGPT 76 U/L (13-56); Albumin, Serum 3.4 g/dL (3.2-5.0); Alkaline Phosphatase 114 U/L (45-117); Anion Gap 6 (5-15); BUN 14 mg/dL (7-18); BUN/Creat Ratio 16.1 RATIO (10-20); Bilirubin, Direct 0.19 mg/dL (0.00-0.30); Calcium,Total 8.9 mg/dL (8.5-10.1); Chloride 109 mmol/L (98-107); Creatinine, Serum 0.87 mg/dL (0.55-1.02); EST Glomerular Filtration Rate 72 mL/min (>60); Est Glom Filt Rate - Afr Amer 87 mL/min (>60); Estimated Creatinine Clearance 78.08 ml/min; Globulin 3.7 g/dL (2.2-4.2); Glucose 117 mg/dL (74-106); Lipase 38 U/L (13-75); Magnesium 2.1 mg/dL (1.6-2.6); Potassium 3.6 mmol/L (3.5-5.1); Protein, Total 7.1 g/dL (6.4-8.2); Sodium Level 140 mmol/L (136-145); Thyroid Stim Hormone (TSH) 3.04 uIU/mL (0.358-3.74); Troponin-I HS 4 pg/mL (3.0-54.0)
[2024-02-06 00:30] VITALS: BP 123/83; PULSE 83; RESP 16; O2SAT 97
[2024-02-06 00:45] VITALS: BP 121/83; PULSE 72; RESP 12; O2SAT 99
[2024-02-06 01:54] LABS: Troponin-I HS 5 pg/mL (3.0-54.0)
--- NOTE | 2024-02-06 02:20 | EDS_ITS ---
HPI History of Present Illness Chief Complaint: Neuro S/Sx Informant: patient and spouse/S.O. Narrative Narrative: Patient is a 53-year-old female who reports no significant past medical history. She states that over the last month or so she has been having left-sided chest pain. She does state that it seems to fluctuate in intensity and that there is no apparent reason for its improvement or worsening. She states she has not been evaluated for it despite its prolonged duration. She states that in the last day the pain has worsened and secondary to this she comes in for evaluation. Of note patient does state that she will also feel intermittent numbness the left side of her face but states this to comes and goes and there is no apparent reason for the change in symptoms PFSH PFS Home Medications ?Medication ?Instructions ?Recorded ?Last Taken ?Type albuterol sulfate 90 mcg/actuation 1 - 2 puff inhalation Q4H PRN PRN 02/23/20 Unknown Rx aerosol inhaler Wheezing ##1 cyclobenzaprine 10 mg tablet 10 mg PO TID PRN Muscle Spasm #15 06/11/20 Unknown Rx tabs Allergy/AdvReac Type Severity Reaction Status Date / Time cinnamon Allergy Anaphylaxis Verified 02/05/24 23:12 codeine Allergy Anaphylaxis Verified 06/11/20 13:41 nj Allergy Swelling Verified 06/11/20 13:41 mold Allergy Shortness Verified 06/11/20 13:41 of breath morphine Allergy Anaphylaxis Verified 06/11/20 13:41 Opioids - Morphine Analogues Allergy Anaphylaxis Verified 06/11/20 13:41 Social History Smoking Status: Never smoker [facility] ED Constitutional Constitutional ED: Denies chills or fever(s) Eyes Eyes: Denies blurry vision or change in vision ENT ENT ED: Denies sore throat Cardiovascular Cardiovascular: Reports chest pain; Denies palpitations or racing heartbeat Respiratory/Chest Respiratory/Chest: Denies cough or dyspnea Gastrointestinal Gastrointestinal: Denies abdominal pain, diarrhea, nausea or vomiting Genitourinary Genitourinary ED: Denies dysuria or hematuria Musculoskeletal Musculoskeletal: Denies back pain or myalgias Integumentary Denies rash Neurologic Neurologic: Reports paresthesias; Denies headache(s) or weakness Hematologic/Lymphatic Hematologic/Lymphatic: Denies easy bleeding or easy bruising EXAM Physical Exam Const Vital Signs: 02/05/24 23:12 02/06/24 00:00 02/06/24 00:30 Temperature 97.5 F L Temperature Source Temporal Pulse Rate 89 77 83 Respiratory Rate 18 15 16 Blood Pressure 145/89 H 163/86 H 123/83 H Blood Pressure Mean 107 111 95 Pulse Ox 97 99 97 Oxygen Delivery Method Room Air Room Air 02/06/24 00:45 02/06/24 02:22 Temperature 97.9 F Temperature Source Pulse Rate 72 78 Respiratory Rate 12 18 Blood Pressure 121/83 H 138/76 H Blood Pressure Mean 95 96 Pulse Ox 99 100 Oxygen Delivery Method Positive well nourished and well developed General Appearance ED: well developed; Negative for pallor HEENT Reports moist mucous membranes HEENT Narrative: No tongue or lip swelling no oral lesions no airway edema or compromise No signs of infection noted the posterior pharynx Eyes PERRL and EOMs intact bilaterally General Eye ED: Negative for pale conjunctiva or scleral icterus Neck supple and no JVD Neck Narrative: No nuchal rigidity or meningeal signs Chest Wall Chest Narrative: There is reproducible left anterior/lateral chest wall pain rib regions 8-12. No bony deformity or crepitance. No overlying soft tissue changes to suggest trauma or infection Resp normal respiratory effort and clear to auscultation bilaterally Resp Narrative: No nasal flaring retractions tachypnea or accessory muscle use Cardio regular rate and regular rhythm Rate: other Other Details: Heart is regular rate and rhythm without murmurs rubs or gallops Radial and carotid pulses equal and symmetric No carotid bruit noted GI normal to inspection, nondistended, normoactive bowel sounds, non-tender, non- distended and no masses GI Narrative: No voluntary guarding or rigidity or pulsatile mass Auscultation: normoactive bowel sounds Palpation: soft Back/Spine no CVA tenderness Extremity normal to inspection Extremity Narrative: No asymmetric edema no pitting edema negative Homans' sign bilaterally Neuro oriented x3 Neuro Narrative: GCS of 15 No pronator drift no dysmetria no truncal ataxia Patient does report slight paresthesia of the left cheek compared to right giving her an NIH stroke scale score of 1. The remainder of the neurologic exam is normal. Sensorium / Orientation: alert Motor Exam: strength 5/5 throughout Psych Psych Narrative: Patient has a nervous/anxious affect Skin no rashes or lesions noted and no wounds General Skin Exam: Negative for jaundice or pallor MDM MDM MDM Narrative Medical decision making narrative: Patient arrived to the ER slightly hypertensive but otherwise with stable vitals and was witnessed able to walk into the ER and into her room with a steady gait without any obvious type of focal weakness. She reported that she has been having prolonged chest discomfort going on for roughly 3 to 4 weeks but that it had worsened in the last 1 to 2 days. She did have reproducible chest wall pain and there is no report or signs of trauma or soft tissue infection on exam in order to ensure that the worsening pain was not due to acute coronary syndrome or PE or potential dissection I did elect to perform basic laboratory studies and a CTA of her chest. Labs revealed no clinically significant findings with an initial troponin of 4 and a delta of 5 indicating no signs of ACS. CTA also revealed no sign of PE or dissection or lung pathology. There is no pain with palpation of the patient's abdomen however this could be a atypical presentation for biliary colic or acute cholecystitis or pancreatitis and therefore basic abdominal labs were added to the workup. These revealed no clinically significant changes going against these as the cause of her symptoms. She did report intermittent paresthesias for the last few weeks as well mainly along her face but other than her report of that her neurologic exam is normal and as her main reason for coming in this evening was the worsening chest pain I do not feel there is need for a CT or CTA of the head. At this time the patient's labs revealed no clinically significant findings her CTA does not reveal any type of vascular or lung pathology and her neurologic exam is normal. Therefore I do feel she will require further workup such as potential stress test echo or heart catheterization if her chest pain persists but with normal troponins and negative CTA do not feel there is need for admission. Also as her neurologic exam does not reveal any signs of acute changes other than mild paresthesias which she states have been coming and going for the past few weeks I do not feel there is need for further workup and this can be done on an outpatient basis. History & Record Review Discussion w/independent historian: Patient and Significant other Lab Data Attestation: I reviewed the patient's lab results. Labs: Laboratory Results - last 24 hr 02/05/24 02/06/24 23:27 01:30 WBC 8.9 RBC 4.34 Hgb 12.4 Hct 38.3 MCV 88.2 MCH 28.6 MCHC 32.4 RDW Std Deviation 43.5 RDW Coeff of Kahlil 13.5 Plt Count 280 MPV 9.7 Immature Gran % (Auto) 0.700 Neut % (Auto) 50.6 Lymph % (Auto) 36.8 [place] % (Auto) 9.0 Eos % (Auto) 2.3 Baso % (Auto) 0.6 Absolute Neuts (auto) 4.5 Absolute Lymphs (auto) 3.26 Nucleated RBC % 0 PT 12.7 INR 1.0 APTT 26.2 Sodium 140 Potassium 3.6 Chloride 109 H Carbon Dioxide 25.0 Anion Gap 6 BUN 14 Creatinine 0.87 Estim Creat Clear Calc 78.08 Est GFR (MDRD) Af Amer 87 Est GFR (MDRD) Non-Af 72 BUN/Creatinine Ratio 16.1 Glucose 117 H Calcium 8.9 Magnesium 2.1 Total Bilirubin 0.70 Direct Bilirubin 0.19 AST 31 ALT 76 H Alkaline Phosphatase 114 Troponin I High Sens 4 5 Total Protein 7.1 Albumin 3.4 Globulin 3.7 Lipase 38 TSH 3.04 Radiography Diagnostic Testing: Clinical Impression(s) from Imaging Studies Chest CTA 02/05/24 23:21 IMPRESSION: 1. No pulmonary embolism. 2. No evidence of acute cardiopulmonary disease. Electronically Signed: Alf Barrett DO at 1:22 EDT , Discharge Plan Triage Chief Complaint: Neuro S/Sx Other Complaint: Chest Pain ED Provider: Rico Dowling Dx/Rx/DC Orders Clinical Impression: Nonspecific chest pain, Paresthesia Instructions: ED Chest Pain, Uncertain Cause, ED Paraesthesias Prescriptions: No Action albuterol sulfate 1 INHALER inhaler 1 - 2 puff inhalation Q4H PRN PRN (Reason: Wheezing) Qty: 1 0RF cyclobenzaprine 10 MG tablet 10 mg PO TID PRN (Reason: Muscle Spasm) Qty: 15 0RF Primary Care Provider: JASWINDER CONNER Referrals: JASWINDER CONNER [Other] Activity Restrictions/Additional Instructions: Your cardiac workup was negative today but secondary to your worsening chest discomfort and prolonged symptoms please follow-up with your family doctor to discuss referral to cardiology as you may need a echo, stress test, and a heart cath. He also may need referral to neurology for potential MRI secondary to y our paresthesia changes. Please return to the ER should you have any further concerns Print Language: Bulgarian Disposition Disposition: Home, Self Care Discharge Date/Time: 02/06/24 02:44
[2024-02-06 02:22] VITALS: BP 138/76; PULSE 78; RESP 18; TEMP 36.6; O2SAT 100
== END 2024-02-06 02:44 | disposition home or self-care (01) ==
PROVIDERS: Emergency Provider Emergency Medicine; Visit Provider Emergency Medicine
DX: R07.89 Other chest pain (principal); R20.2 Paresthesia of skin; Z79.899 Other long term (current) drug therapy
CPT/HCPCS: 71275; 80048; 80076; 83690; 83735; 84443; 84484; 85025; 85610; 85730; 93005; 96360; 99283; J7030; Q9967; A4216